=== PATIENT | female | born 1990 | race Caucasian/White ===

== ENCOUNTER → 2016-02-26 | Outpatient (CLI) | payer BC, OTHER ==
[2016-02-26 11:10] LABS: Basophils # (A) 0.1 k/uL (0-0.2); Basophils % (A) 1 %; CH 26.8; CHCM 31.6; Eosinophils # (A) 0.2 k/uL (0-0.7); Eosinophils % (A) 1 %; HCT 39.5 % (34.0-46.0); HDW 2.71; HGB 12.6 gm/dL (11.4-16.0); Hypochromasia Slight; Luc # (Auto) 0.22; Luc % (Auto) 2; Lymphocytes % (A) 25 %; MCH 27.1 pg (25.0-35.0); MCHC 31.9 g/dL (31.0-37.0); MCV 85.2 fL (80.0-100.0); Mean Platelet Volume 6.8; Monocytes # (A) 0.5 k/uL (0-1.0); Monocytes % (A) 4 %; Neutrophils # (A) 8.1 k/uL (1.3-7.7); Neutrophils % (A) 67 %; RBC 4.63 m/uL (3.80-5.40); RDW 12.6 % (11.5-15.5); WBC (Perox) 12.45
[2016-02-26 11:18] LABS: ALT 33 U/L (9-52); AST 18 U/L (14-36); Alkaline Phosphatase 96 U/L (38-126); Amylase <30 U/L (30-110); Anion Gap 13 mmol/L; Blood Urea Nitrogen 6 mg/dL (7-17); Carbon Dioxide 24 mmol/L (22-30); Chloride 105 mmol/L (98-107); Glucose 137 mg/dL (74-99); Non-African American GFR(MDRD) >60 (>60 ml/min/1.73 sqM); Potassium 4.2 mmol/L (3.5-5.1); Sodium 142 mmol/L (137-145); Total Bilirubin 0.4 mg/dL (0.2-1.3); Total Protein 7.7 g/dL (6.3-8.2)
[2016-02-26 11:28] LABS: Appearance,Urine Clear (Clear); Bilirubin,Urine Negative (Negative); Glucose,Urine (UA) Negative (Negative); Ketones,Urine Negative (Negative); Leukocyte Esterase,Urine Negative (Negative); Nitrite,Urine Negative (Negative); PH, Urine 5.5 (5.0-8.0); Protein,Urine Negative (Negative); UA Billing (MACRO vs. MICRO) CHEM; Urobilinogen,Urine <2.0 mg/dL (<2.0)
== END | disposition home or self-care (01) ==
LOC: LABWHC1 10:33
PROVIDERS: ATTEND Family Medicine
DX: R50.9 Fever, unspecified (principal); R53.83 Other fatigue; R10.9 Unspecified abdominal pain
CPT/HCPCS: 36415; 80053; 81003; 82150; 83690; 84443; 85025; 86308; 87040; 87086

== ENCOUNTER 2017-05-02 05:32 | Emergency (ER) | payer BC ==
[2017-05-02 06:17] VITALS: RESP 18
[2017-05-02] MEDS ORDERED: PROPARACAINE 0.5% OPHTH DROPS 15 ML BTL BOTH EYES STA (07:12)
[2017-05-02] MEDS ORDERED: SODIUM CHLORIDE 0.9% 1,000 ML IV ONE (07:21)
[2017-05-02] MEDS ORDERED: diphenhydrAMINE 50 MG/ML 1 ML VIAL IVP STA (07:21)
[2017-05-02] MEDS ORDERED: METOCLOPRAMIDE 5 MG/ML 2 ML VIAL IVP STA (07:21)
--- NOTE | 2017-05-02 07:26 | ED ---
General Adult HPI - General Chief complaint: Eye Problems Stated complaint: Migraine Time Seen by Provider: 05/02/17 05:34 Source: patient, RN notes reviewed Mode of arrival: ambulatory Limitations: no limitations - History of Present Illness Initial comments: 26-year-old female with no significant past medical history presents for evaluation of left eye pain and left retro-orbital headache. Patient states she does get headaches over this headache is different. Began at 1 AM while she was at work. It has worsened since that time. She does report some nausea , no vomiting. Patient also reports a injury to her left eye approximately 2 days ago, she was playing with her dog about her nose and she believes possibly left eye as well. She had no to give him pain after the injury. She also complains of some blurry vision in her left eye. Denies fever or chills. Denies any focal numbness or weakness. - Related Data Home Medications Medication Instructions Recorded Confirmed Norgestimate-Ethinyl Estradiol 1 tab PO DAILY 07/17/15 08/12/15 [Sprintec 28 Day Tablet] Previous Rx's Medication Instructions Recorded Ibuprofen [Motrin] 600 mg PO Q8HR PRN #24 tab 05/02/17 Allergies Allergy/AdvReac Type Severity Reaction Status Date / Time nitrous oxide Allergy Anaphylaxis Verified 08/12/15 10:53 Review of Systems ROS Statement: Those systems with pertinent positive or pertinent negative responses have been documented in the HPI. ROS Other: All systems not noted in ROS Statement are negative. Past Medical History Past Medical History: No Reported History History of Any Multi-Drug Resistant Organisms: None Reported Past Surgical History: Orthopedic Surgery Additional Past Surgical History / Comment(s): face, R ankle sx Past Psychological History: Anxiety Smoking Status: Never smoker Past Alcohol Use History: Occasional Past Drug Use History: None Reported General Exam Limitations: no limitations General appearance: alert, in no apparent distress Head exam: Present: atraumatic, normocephalic Eye exam: Present: normal appearance, PERRL, EOMI ENT exam: Present: normal exam Neck exam: Present: normal inspection. Absent: tenderness, meningismus Respiratory exam: Present: normal lung sounds bilaterally. Absent: respiratory distress Cardiovascular Exam: Present: regular rate, normal rhythm GI/Abdominal exam: Present: soft. Absent: distended, tenderness Extremities exam: Present: normal inspection, normal capillary refill. Absent: pedal edema Neurological exam: Present: alert, oriented X3, CN II-XII intact. Absent: motor sensory deficit Psychiatric exam: Present: normal affect, normal mood Skin exam: Present: warm, dry, intact. Absent: cyanosis, diaphoretic Course Vital Signs 05/02/17 06:12 Temperature 97.5 F L Pulse Rate 91 Respiratory 18 Rate Blood Pressure 124/63 O2 Sat by Pulse 100 Oximetry Medical Decision Making - Medical Decision Making 26-year-old female coming in with headache and left eye pain. Examination of the eye, normal pupillary reflex, fluorescein staining is negative for corneal abrasion. Intraocular pressure 14 which is normal. No proptosis. Patient's neurologic examination is nonfocal. Patient is using her cell phone, appears in no distress. Head CT is obtained, this is negative for any acute intracranial pathology. Laboratory studies do reveal mild leukocytosis 13.6, these are otherwise normal including normal hemoglobin, normal electrolytes, normal urinalysis and negative hCG. On reevaluation, patient's headache is significantly improved. She still has some residual eye pain. Patient will return with worsening symptoms including development of fever, worsening eye pain or change in the character of her headache. She will follow-up with her primary care physician. - Lab Data Result diagrams: 05/02/17 08:05 05/02/17 08:05 Lab Results 05/02/17 05/02/17 05/02/17 Range/Units 08:05 08:05 08:05 WBC 13.6 H (3.8-10.6) k/uL RBC 4.67 (3.80-5.40) m/uL Hgb 12.5 (11.4-16.0) gm/dL Hct 37.7 (34.0-46.0) % MCV 80.7 (80.0-100.0) fL MCH 26.8 (25.0-35.0) pg MCHC 33.2 (31.0-37.0) g/dL RDW 12.6 (11.5-15.5) % Plt Count 411 (150-450) k/uL Neutrophils % 76 % Lymphocytes % 16 % Monocytes % 5 % Eosinophils % 1 % Basophils % 1 % Neutrophils # 10.4 H (1.3-7.7) k/uL Lymphocytes # 2.2 (1.0-4.8) k/uL Monocytes # 0.6 (0-1.0) k/uL Eosinophils # 0.2 (0-0.7) k/uL Basophils # 0.1 (0-0.2) k/uL Sodium 143 (137-145) mmol/L Potassium 4.2 (3.5-5.1) mmol/L Chloride 108 H (98-107) mmol/L Carbon Dioxide 24 (22-30) mmol/L Anion Gap 11 mmol/L BUN 9 (7-17) mg/dL Creatinine 0.58 (0.52-1.04) mg/dL Est GFR (CKD-EPI)AfAm >90 (>60 ml/min/1.73 sqM) Est GFR (CKD-EPI)NonAf >90 (>60 ml/min/1.73 sqM) Glucose 150 H (74-99) mg/dL Calcium 9.6 (8.4-10.2) mg/dL Total Bilirubin 0.3 (0.2-1.3) mg/dL AST 17 (14-36) U/L ALT 23 (9-52) U/L Alkaline Phosphatase 96 (38-126) U/L Total Protein 7.6 (6.3-8.2) g/dL Albumin 4.1 (3.5-5.0) g/dL Urine Color Urine Appearance (Clear) Urine pH (5.0-8.0) Ur Specific [place] (1.001-1.035) Urine Protein (Negative) Urine Glucose (UA) (Negative) Urine Ketones (Negative) Urine Blood (Negative) Urine Nitrite (Negative) Urine Bilirubin (Negative) Urine Urobilinogen (<2.0) mg/dL Ur Leukocyte Esterase (Negative) Urine HCG, Qual Not Detected (Not Detectd) Serum Alcohol <10 mg/dL 05/02/17 Range/Units 08:05 WBC (3.8-10.6) k/uL RBC (3.80-5.40) m/uL Hgb (11.4-16.0) gm/dL Hct (34.0-46.0) % MCV (80.0-100.0) fL MCH (25.0-35.0) pg MCHC (31.0-37.0) g/dL RDW (11.5-15.5) % Plt Count (150-450) k/uL Neutrophils % % Lymphocytes % % Monocytes % % Eosinophils % % Basophils % % Neutrophils # (1.3-7.7) k/uL Lymphocytes # (1.0-4.8) k/uL Monocytes # (0-1.0) k/uL Eosinophils # (0-0.7) k/uL Basophils # (0-0.2) k/uL Sodium (137-145) mmol/L Potassium (3.5-5.1) mmol/L Chloride (98-107) mmol/L Carbon Dioxide (22-30) mmol/L Anion Gap mmol/L BUN (7-17) mg/dL Creatinine (0.52-1.04) mg/dL Est GFR (CKD-EPI)AfAm (>60 ml/min/1.73 sqM) Est GFR (CKD-EPI)NonAf (>60 ml/min/1.73 sqM) Glucose (74-99) mg/dL Calcium (8.4-10.2) mg/dL Total Bilirubin (0.2-1.3) mg/dL AST (14-36) U/L ALT (9-52) U/L Alkaline Phosphatase (38-126) U/L Total Protein (6.3-8.2) g/dL Albumin (3.5-5.0) g/dL Urine Color Colorless Urine Appearance Clear (Clear) Urine pH 6.0 (5.0-8.0) Ur Specific [place] 1.004 (1.001-1.035) Urine Protein Negative (Negative) Urine Glucose (UA) Negative (Negative) Urine Ketones Negative (Negative) Urine Blood Negative (Negative) Urine Nitrite Negative (Negative) Urine Bilirubin Negative (Negative) Urine Urobilinogen <2.0 (<2.0) mg/dL Ur Leukocyte Esterase Negative (Negative) Urine HCG, Qual (Not Detectd) Serum Alcohol mg/dL Disposition Clinical Impression: Headache Disposition: HOME SELF-CARE Condition: Good Instructions: General Headache (ED) Additional Instructions: Please follow up with primary care regarding headache, follow-up with ophthalmology as needed if eye pain persists. Return to emergency department with any development of fever, worsening eye pain, or evolving symptoms Prescriptions: Ibuprofen [Motrin] 600 mg PO Q8HR PRN #24 tab PRN Reason: Pain Referrals: None,Stated [Primary Care Provider] - 1-2 days Alessio Johnston MD [STAFF PHYSICIAN] - 1-2 days Time of Disposition: 09:15
[2017-05-02 08:15] LABS: Basophils # (A) 0.1 k/uL (0-0.2); Basophils % (A) 1 %; Eosinophils # (A) 0.2 k/uL (0-0.7); Eosinophils % (A) 1 %; HCT 37.7 % (34.0-46.0); HGB 12.5 gm/dL (11.4-16.0); Lymphocytes # (A) 2.2 k/uL (1.0-4.8); Lymphocytes % (A) 16 %; MCH 26.8 pg (25.0-35.0); MCHC 33.2 g/dL (31.0-37.0); MCV 80.7 fL (80.0-100.0); Mean Platelet Volume 6.5; Monocytes # (A) 0.6 k/uL (0-1.0); Monocytes % (A) 5 %; Neutrophils # (A) 10.4 k/uL (1.3-7.7); Neutrophils % (A) 76 %; Platelet Count 411 k/uL (150-450); RBC 4.67 m/uL (3.80-5.40); RDW 12.6 % (11.5-15.5); WBC 13.6 k/uL (3.8-10.6)
[2017-05-02 08:31] LABS: ALT 23 U/L (9-52); AST 17 U/L (14-36); Albumin 4.1 g/dL (3.5-5.0); Alcohol <10 mg/dL; Alkaline Phosphatase 96 U/L (38-126); Anion Gap 11 mmol/L; Blood Urea Nitrogen 9 mg/dL (7-17); Calcium 9.6 mg/dL (8.4-10.2); Carbon Dioxide 24 mmol/L (22-30); Chloride 108 mmol/L (98-107); Glucose 150 mg/dL (74-99); Potassium 4.2 mmol/L (3.5-5.1); Sodium 143 mmol/L (137-145); Total Bilirubin 0.3 mg/dL (0.2-1.3); Total Protein 7.6 g/dL (6.3-8.2)
[2017-05-02 08:32] LABS: Appearance,Urine Clear (Clear); Bilirubin,Urine Negative (Negative); Blood,Urine Negative (Negative); Color,Urine Colorless; Glucose,Urine (UA) Negative (Negative); Ketones,Urine Negative (Negative); Leukocyte Esterase,Urine Negative (Negative); Nitrite,Urine Negative (Negative); Protein,Urine Negative (Negative); Specific Gravity,Urine 1.004 (1.001-1.035); Urobilinogen,Urine <2.0 mg/dL (<2.0)
--- NOTE | 2017-05-02 09:06 | CT ---
EXAMINATION TYPE: CT brain wo con DATE OF EXAM: 05/02/2017 COMPARISON: NONE HISTORY: Lt eye pain CT DLP: 1017.9 mGycm. Automated Exposure Control for Dose Reduction was Utilized. TECHNIQUE: CT scan of the head is performed without contrast. FINDINGS: There is no acute intracranial hemorrhage, mass effect, or midline shift identified. The ventricles and sulci are within normal limits in size. Stanford-white matter differentiation is maintai lisa The globes are intact bilaterally. Intraconal fat is preserved. Visualized paranasal sinuses are clear. IMPRESSION: No acute intracranial hemorrhage, mass effect, or midline shift is seen. Unremarkable st udy.
[2017-05-02 09:50] VITALS: BP 132/77; PULSE 77; TEMP 98.3
== END 2017-05-02 09:50 | disposition home or self-care (01) ==
LOC: EC 05:32
DX: R51 Headache (principal); H57.12 Ocular pain, left eye; R11.0 Nausea; H53.8 Other visual disturbances; Z79.3 Long term (current) use of hormonal contraceptives; Z91.048 Other nonmedicinal substance allergy status
CPT/HCPCS: 36415; 80053; 85025; 81003; 81025; 80320; 70450; 99284; 96374; 96375; 96361; J1200; J2765

== ENCOUNTER 2017-05-19 17:54 | Emergency (ER) | payer OTHER, BC ==
[2017-05-19 18:05] VITALS: BP 129/82; PULSE 76; RESP 18; TEMP 98.2
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
[2017-05-19] MEDS ORDERED: IBUPROFEN 600 MG TAB PO STA (19:11)
--- NOTE | 2017-05-19 19:26 | XR ---
EXAMINATION TYPE: XR shoulder complete LT DATE OF EXAM: 05/19/2017 COMPARISON: NONE HISTORY: Shoulder pain TECHNIQUE: 3 views FINDINGS: I see no fracture nor dislocation. Joint spaces are normal. Soft tissues appear normal. IMPRESSION: Negative left shoulder exam.
--- NOTE | 2017-05-19 19:27 | XR ---
EXAMINATION TYPE: XR elbow complete LT DATE OF EXAM: 05/19/2017 COMPARISON: NONE HISTORY: Pain TECHNIQUE: 3 views FINDINGS: I see no fracture nor dislocation. Elbow joint spaces are normal. There is no sign of joint effusion. IMPRESSION: Negative left elbow exam.
--- NOTE | 2017-05-19 19:29 | XR ---
EXAMINATION TYPE: XR wrist complete BILATERAL DATE OF EXAM: 05/19/2017 COMPARISON: NONE HISTORY: Wrist pain TECHNIQUE: 8 views FINDINGS: I see no fracture nor dislocation. Joint spaces are normal. There are no erosions. Scaphoid bones are intact. There are no pathologic calcifications. IMPRESSION: Normal bilateral wrist exam. No sign of inflammatory arthritis.
== END 2017-05-19 20:05 | disposition home or self-care (01) ==
LOC: EC 17:54
DX: S46.812A Strain of other muscles, fascia and tendons at shoulder and upper arm level, left arm, initial encounter (principal); M25.522 Pain in left elbow; M25.531 Pain in right wrist; M25.532 Pain in left wrist; Z79.3 Long term (current) use of hormonal contraceptives; Z91.048 Other nonmedicinal substance allergy status; V43.52XA Car driver injured in collision with other type car in traffic accident, initial encounter; W22.11XA Striking against or struck by driver side automobile airbag, initial encounter; Y92.410 Unspecified street and highway as the place of occurrence of the external cause
CPT/HCPCS: 29125; 81025; 99284

== ENCOUNTER 2021-09-01 02:55 | Emergency (ER) | payer BC, OTHER ==
[2021-09-01 03:01] VITALS: BP 106/70; PULSE 76; RESP 16; TEMP 97.8
[2021-09-01] MEDS ORDERED: SODIUM CHLORIDE 0.9% 1,000 ML IV STA ×2 (03:10→04:20)
[2021-09-01] MEDS ORDERED: ONDANSETRON 4 MG/2 ML VIAL IVP STA (03:10)
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
[2021-09-01 03:57] LABS: Basophils % (A) 1 %; Eosinophils # (A) 0.1 k/uL (0-0.7); Eosinophils % (A) 2 %; HCT 37.6 % (34.0-46.0); HGB 12.7 gm/dL (11.4-16.0); Lymphocytes # (A) 2.5 k/uL (1.0-4.8); Lymphocytes % (A) 31 %; MCH 30.1 pg (25.0-35.0); MCHC 33.7 g/dL (31.0-37.0); MCV 89.4 fL (80.0-100.0); Mean Platelet Volume 7.6; Monocytes # (A) 0.4 k/uL (0-1.0); Monocytes % (A) 4 %; Neutrophils # (A) 5.1 k/uL (1.3-7.7); Neutrophils % (A) 61 %; Platelet Count 355 k/uL (150-450); RDW 13.5 % (11.5-15.5); WBC 8.3 k/uL (3.8-10.6)
[2021-09-01 04:14] LABS: ALT 16 U/L (4-34); AST 19 U/L (14-36); Acetaminophen <10.0 ug/mL; African American GFR (CKD) >90 (>60 ml/min/1.73 sqM); Albumin 4.3 g/dL (3.5-5.0); Alkaline Phosphatase 56 U/L (38-126); Anion Gap 9 mmol/L; Blood Urea Nitrogen 6 mg/dL (7-17); Carbon Dioxide 24 mmol/L (22-30); Chloride 107 mmol/L (98-107); Glucose 119 mg/dL (74-99); Lipase 71 U/L (23-300); Non-African American GFR(CKD) >90 (>60 ml/min/1.73 sqM); Potassium 3.6 mmol/L (3.5-5.1); Salicylate <1.0 mg/dL; Sodium 140 mmol/L (137-145); Total Bilirubin 0.2 mg/dL (0.2-1.3); Total Protein 7.3 g/dL (6.3-8.2)
[2021-09-01 04:19] LABS: Alcohol 150 mg/dL
[2021-09-01 04:48] LABS: Amphetamine Screen,Urine Not Detected (NotDetected); Barbiturate Screen,Urine Not Detected (NotDetected); Benzodiazepines Screen,Urine Not Detected (NotDetected); Cocaine Screen,Urine Not Detected (NotDetected); Methadone Screen, Urine Not Detected (NotDetected); Opiate Screen,Urine Not Detected (NotDetected); Oxycodone Screen, Urine Not Detected (NotDetected); Phencyclidine Screen,Urine Not Detected (NotDetected); Tricyclic Antidepressant,Urine Not Detected (NotDetected); Urn Cannabinoid Scrn Not Detected (NotDetected)
== END 2021-09-01 05:49 | disposition home or self-care (01) ==
LOC: EC 02:55
DX: F10.129 Alcohol abuse with intoxication, unspecified (principal); Z88.8 Allergy status to other drugs, medicaments and biological substances; F17.209 Nicotine dependence, unspecified, with unspecified nicotine-induced disorders
CPT/HCPCS: 36415; 93005; 80053; 83690; 85025; 81025; 80306; 80143; 80179; 99285; 96374; 96361; G0480; J2405; 80320